=== PATIENT | female | born 1950 | race Caucasian/White ===

== ENCOUNTER → 2024-04-23 16:11 | Outpatient (REF) | payer OTHER, SELFPAY | LOC: WDC 16:11 | PROVIDERS: ATTENDING PHYSICIAN Family Medicine | DX: Z12.31 Encounter for screening mammogram for malignant neoplasm of breast (principal); R92.2 Inconclusive mammogram; Z80.3 Family history of malignant neoplasm of breast | CPT/HCPCS: 77063; 77067 ==

== ENCOUNTER 2024-05-23 06:21 | Day surgery (SDC) | payer OTHER, SELFPAY ==
[2024-05-23 07:21] VITALS: BP 139/88
[2024-05-23 07:40] VITALS: BMI 21.8
[2024-05-23 09:20] VITALS: BP 124/64
[2024-05-23 09:30] VITALS: BP 131/63
[2024-05-23 09:45] VITALS: BP 131/61
== END 2024-05-23 10:10 | disposition home or self-care (01) ==
LOC: SDS 06:21
PROVIDERS: ATTENDING PHYSICIAN Internal Medicine Gastroenterology
DX: Z12.11 Encounter for screening for malignant neoplasm of colon (principal); D12.0 Benign neoplasm of cecum; D12.4 Benign neoplasm of descending colon; K63.5 Polyp of colon; Q43.8 Other specified congenital malformations of intestine; K64.0 First degree hemorrhoids; Z86.0109 Personal history of other colon polyps; K57.30 Diverticulosis of large intestine without perforation or abscess without bleeding
CPT/HCPCS: 45385; 88305

== ENCOUNTER 2024-11-05 19:19 | Day surgery (SDC) | payer OTHER, SELFPAY ==
[2024-11-05] VITALS (8 sets, daily range): BP systolic 119–168; BP diastolic 65–147; BMI 22.6
[2024-11-05 12:03] LABS: % Basophils 0.5 % (0-2); % Eosinophils 0.4 % (0-6); % Immature Granulocytes 0.4 % (0-0.5); % Monocytes 4.1 % (1.7-9.3); % Neutrophils 81.6 % (42.2-75.2); Absolute Basophils 0.1 10^3/uL (0-0.2); Absolute Lymphocytes 1.5 10^3/uL (1.2-3.4); Absolute Monocytes 0.5 10^3/uL (0.1-0.6); Absolute Neutrophils 9.3 10^3/uL (1.4-6.5); Hematocrit 41.7 % (37.0-47.0); Hemoglobin 14.4 g/dL (12.0-16.0); Mean Corp Hgb Conc. 34.5 g/dL (33.0-37.0); Mean Corpuscular Hgb 33.1 pg (27.0-31.0); Mean Corpuscular Volume 95.9 fL (81.0-99.0); Mean Platelet Volume 10.1 fL (7.4-10.4); Nucleated Red Blood Cells % 0 %; Platelet Count 243 10^3/uL (130-400); Red Blood Cell Count 4.35 10^6/uL (4.20-5.40); Red Cell Dist. Width 12.4 % (11.5-14.5); White Blood Cell Count 11.3 10^3/uL (4.8-10.8)
[2024-11-05 12:35] LABS: ALT (SGPT) 17 U/L (0-35); AST (SGOT) 21 U/L (14-36); Alkaline Phosphatase 72 U/L (38-126); Blood Urea Nitrogen 19 mg/dl (7-17); Calcium 10.1 mg/dl (8.4-10.2); Carbon Dioxide 24 mmol/L (22-30); Chloride 104 mmol/L (98-107); Glucose 151 mg/dl (70-99); Potassium 4.2 mmol/L (3.5-5.1); Sodium 141 mmol/L (135-145); Total Bilirubin 1.3 mg/dl (0.2-1.3); Total Protein 7.6 g/dl (6.3-8.2); eGFR 53.39
--- NOTE | 2024-11-05 13:06 | ED.GENMED ---
History of Present Illness
General
Chief Complaint: Chest Pain
Time Seen by Provider: 11/05/24 13:05
History of Present Illness
History of Present Illness:
TIME OF INITIAL ENCOUNTER: 1:10 PM
HPI: The patient presents with relatively abrupt onset abdominal and left-sided flank discomfort. She has a history of kidney stones and this feels similar to prior kidney stones. She also has a history of diverticulitis but this does not feel
like diverticulitis. She has been vomiting. Intermittently throughout the day she also chest discomfort which she describes as minimal currently.
EXAM:
GENERAL: The patient appears uncomfortable
HEENT: Moist oral mucosa
CARDIOVASCULAR: No murmurs, normal heart rate, regular rhythm, No chest wall tenderness
PULMONARY: No respiratory distress, breath sounds are clear and equal
ABDOMEN: Soft with no peritoneal signs, minimal left-sided abdominal tenderness, no CVA tenderness
NEUROLOGIC: Excellent strength all extremities, no coordination deficits
PSYCHIATRIC: Appropriate mental status, normal insight and judgement
EXTREMITIES: Nontender, no edema, moves all extremities equally
SKIN: No rash, no lesions
NUMBER AND COMPLEXITY OF PROBLEMS ADDRESSED AT THE ENCOUNTER
� Chronic conditions affecting care: Migraines, high blood pressure, diverticular disease, anxiety
� Acute Exacerbation and/or Progression of Chronic Illness: This is an acute problem
� Differential Diagnosis includes: Ureteral stone, diverticulitis, viral syndrome, UTI/pyelonephritis
AMOUNT AND/OR COMPLEXITY OF DATA TO BE REVIEWED AND ANALYZED
� I performed an independent evaluation of and my interpretation is:
EKG: Sinus 62, normal axis, no acute ST abnormality no change from 2019
CT: CT shows a 4 mm stone in the distal left ureter just proximal to the left UVJ
X-rays:
Laboratory Studies: White count 11.3, hemoglobin 14.4, creatinine 1.1, greater than 100 red cells per high-powered field but no evidence of infection
Other:
� Review of other/old records: I reviewed records, the patient had a colonoscopy in 2023 and was seen here in 2019 with diverticulitis. The patient also had a ureteral stone in 2019.
� Clinical information was obtained by an independent historian: I spoke to the at bedside
� Prescriptions/Medications Considered but not given:
� Further testing considered but not performed:
RISK OF COMPLICATIONS AND/OR MORBIDITY OR MORTALITY OF PATIENT MANAGEMENT
� Social determinants of health affecting care: Lives at home
� Discussion with other providers: Discussed with Dr. Miguel
� Escalation of care including admission/observation vs risk of discharge considered: The patient states that her pain feels like the time she had a kidney stone. She appears uncomfortable. Although she has mild renal
insufficiency, will give a dose of Toradol. She is also given fluids and Zofran. Will obtain noncontrast CT. She describes some intermittent mild chest discomfort but EKG is unremarkable.
ANY OTHER UPDATES:
4 PM: On reassessment, the patient's pain persists but somewhat improved. Will give low-dose Dilaudid.
4:45 PM: The patient was given Dilaudid earlier reports no significant improvement. She remains to appear uncomfortable and she does not feel comfortable going home. I notified Dr. Miguel who accepts to his service for further management.
Past History
Past History
ED Past Medical History: HTN and Other
ED Past Surgical History: Cholecystectomy, Gynecological and Urological
Social History
Tobacco: Former smoker
Alcohol: Occasional
Personal:
Living: with family
Employment: Employed
Family History
Family History: Negative Early CAD
Phy Exam
Physical Exam
Physical Exam:
See HPI
Scores
Heart Score for Chest Pain Patients
STEMI patient?: Not applicable
Course
Orders/Labs/Results
Orders:
Orders
11/05/24 11:27
ECG [Electrocardiogram (*1)] Urgent
Reason for Study: Chest Pain
EKG- Treatment ONCE
11/05/24 11:44
Complete Blood Count/With Diff Urgent
Comprehensive Metabolic Panel Urgent
Troponin I Urgent
11/05/24 13:12
CT Abd/pel Without Iv Or Oral Urgent
Comment:
Reason For Exam: L flank/abd pain similar to prior stone
0.9% Sodium Chloride 1000 ml [Nss] 1,000 ml IV BOLUS
Ketorolac [Toradol] 15 mg IV NOW STA
11/05/24 13:13
Ondansetron Injectable [Zofran] 4 mg IV NOW STA
11/05/24 13:37
Urinalysis Reflex To Culture Urgent
Date Specimen was Collected: 11/05/24
Time Specimen was Collected: 13:25
Urine Microscopic Reflex Cult Urgent
Urine Culture Urgent
KATHY Source: U
Specimen Description:
Date Specimen was Collected: 11/05/24
Time Specimen was Collected: 13:25
11/05/24 15:52
HYDROmorphone [Dilaudid] 0.5 mg IV NOW STA
Abnormal Lab Results
11/05/24 11/05/24
11:44 13:37
WBC 11.3 H 10^3/uL
(4.8-10.8)
MCH 33.1 H pg
(27.0-31.0)
Absolute Neuts (auto) 9.3 H 10^3/uL
(1.4-6.5)
Neutrophils % 81.6 H %
(42.2-75.2)
Lymphocytes % 13.0 L %
(20.5-51.1)
BUN 19 H mg/dl
(7-17)
Creatinine 1.1 H mg/dL
(0.6-1.0)
Glucose 151 H mg/dl
(70-99)
Ur Occult Blood Reflex 4+ A
(Negative)
Leukocyte Esterase Rfl 1+ A
(Negative)
Urine RBC >100 A /HPF
(0-2)
Urine Albumin (Reflex) 2+ A
(Neg - Trace)
11/05/24 11:44
11/05/24 11:44
Vital Signs
Initial and Last Documented VS:
Initial Vital Signs
Temp Pulse Resp BP Pulse Ox
36.5 C 57 16 139/79 95
11/05/24 11:33 11/05/24 11:33 11/05/24 11:33 11/05/24 11:33 11/05/24 11:33
Last Documented Vital Signs
Temp Pulse Resp BP Pulse Ox
36.5 C 59 16 131/71 99
11/05/24 11:33 11/05/24 14:06 11/05/24 11:33 11/05/24 14:06 11/05/24 13:07
*Critical Care Note
Total Time (30-74mins, 75-104mins- exclusive of procedures): Not Applicable
ED Attending Note
-
Portions of this chart may have been created with voice recognition software.� Occasional wrong word or��sound alike� substitutions may have occurred due to the inherent limitations of voice recognition software.
Discharge Plan
Departure
Patient Disposition: Admit
Date of Disposition: 11/05/24
Time of Disposition: 16:56
Presentation/result/management discussed w/ accepting MD/DO: dr miguel
Discharge Problem:
Left ureteral stone
Prescriptions:
No Action
PreserVision Lutein 1 EACH capsule
1 cap PO BID
calcium carbonate-vit D3-min [Caltrate 600-D Plus Minerals] 1 TAB tablet
3 tab PO DAILY
cyanocobalamin (vitamin B-12) 1,000 MCG tablet
1,000 mcg PO DAILY
aspirin 81 MG tablet,delayed release (/EC)
81 mg PO DAILY
ascorbic acid (vitamin C) [Vitamin C] 500 MG tablet
500 mg PO DAILY
PreserVision AREDS 1 CAP capsule
1 cap PO BID
Multivitamin Women 50 Plus 1 EACH tablet
1 ea PO DAILY
sertraline 25 MG tablet
25 mg PO PRN PRN (Reason: anxiety)
zolpidem 5 MG tablet
5 mg PO HSPRN PRN (Reason: insomnia)
metoprolol succinate [Toprol XL] 25 mg Tablet Extended Release 24 Hr
25 mg PO DAILY
Referrals:
Serafin Dickerson DO [Family Provider] -
Interventions
Interventions:
*Risk Screen - Suicide Last Done: 11/05/24 11:33
*Neglect/Abuse Screening Last Done: 11/05/24 11:33
Discharge Date and Time
Print Language: BELARUSIAN
[2024-11-05] MEDS: TORADOL 15 MG IV ×2 (13:26→22:41)
[2024-11-05] MEDS: NSS 1000 IV ×2 (13:27→22:41)
[2024-11-05] MEDS: ZOFRAN 4 MG IV (13:28)
[2024-11-05 13:30] LABS: Troponin I < 0.012 ng/ml
[2024-11-05 14:02] LABS: Urine Albumin 2+ (Neg - Trace); Urine Bilirubin Negative (Negative); Urine Character Slightly Cloudy (Clear); Urine Color Yellow; Urine Glucose Negative (Negative); Urine Ketone Negative (Negative); Urine Leukocyte 1+ (Negative); Urine Nitrite Negative (Negative); Urine Occult Blood 4+ (Negative); Urine Specific Gravity 1.015 (<1.030); Urine Urobilinogen Negative (Neg - 1+); Urine pH 6.5 (5.0-9.0)
[2024-11-05 14:39] LABS: Urine Amorphous Seen
[2024-11-05 14:40] LABS: Urine Red Blood Cell >100 /HPF (0-2)
[2024-11-05] MEDS: DILAUDID 0.5 MG IV (16:02)
--- NOTE | 2024-11-05 17:34 | HP.FOC2 ---
Focused History & Physical
Chief Complaint
HPI:
Chief Complaint: flank pain
HPI / Indication for Planned Procedure:
74F known to our practice with history of kidney stones
8mm R proximal stone removed in 2019 with ureteroscopy
Was followed and did not have any recurrence of stones on CT and [facility] as of 2022
Incontinence issues s/p sling with Dr. Bocanegra
Presents with sudden severe L flank pain with nausea and vomiting for 1 day
No infectious signs or symptoms - no fevers/chills
CT in ED showed 4mm L distal stone
Afebrile
Pain unable to be controlled for outpatient trial of passage
Relevant Past Medical History: Hypertension and Other (kidney stones)
Relevant Social History: Negative
Relevant Family History: Negative
Relevant Past Surgical History: Positive for (ureteroscopy)
Review of Systems
Review of Pertinent Systems: All Systems Negative
Medication
See Medication form for detailed medications: Yes
Medication List (including Herbals & OTC):
ascorbic acid (vitamin C) 500 mg tablet (Vitamin C) 500 mg PO DAILY 05/10/20
aspirin 81 mg tablet,delayed release 81 mg PO DAILY 05/10/20
cyanocobalamin (vitamin B-12) 1,000 mcg tablet 1,000 mcg PO DAILY 05/10/20
sertraline 25 mg tablet 25 mg PO DAILYPRN PRN anxiety 05/10/20
vitamins A,C,V-ludf-avlszz 4,296 mcg-226 mg-90 mg capsule (PreserVision AREDS) 1 cap PO BID 05/10/20
metoprolol succinate 25 mg tablet,extended release 24 hr (Toprol XL) 25 mg PO QPM 05/23/24
yneffzx-aritycghrfszm-tlsafqye 250 mg-250 mg-65 mg tablet (Excedrin Migraine) 1 tab PO DAILYPRN PRN migraine 11/05/24
calcium carbonate (Calcium 600) 600 mg PO BID 11/05/24
vtfexyze-dao-qwakx1 250 mg-dha 90 mg-epa 160 bu-gfqt-ipqn-zeax capsule (Ocuvite Adult 50 Plus) 1 cap PO DAILY 11/05/24
simvastatin 40 mg tablet 40 mg PO QPM 11/05/24
therapeutic multivitamin 1 tab PO DAILY 11/05/24
zolpidem 10 mg tablet 10 mg PO HSPRN PRN sleep 11/05/24
Medications Reviewed: Yes
Allergies and Reactions
Patient has Allergies: Yes
Noted Allergies and Reactions:
Allergy/AdvReac Type Severity Reaction Status Date / Time
cat dander Allergy Unknown Verified 11/05/24 11:33
orange Allergy Unknown Verified 11/05/24 11:33
Penicillins Allergy polio Verified 11/05/24 11:33
symptoms
ragweed pollen Allergy Unknown Verified 11/05/24 11:33
strawberry [[place]] Allergy Unknown Verified 11/05/24 11:33
Pertinent Physical Exam
All Other Systems: Negative
Head/Neck: Normal
Lungs: Normal
Heart: Normal
Abdomen: Normal
Other: L CVAT
Diagnosis / Assessment
74F with intractable pain and nausea from 4mm L distal ureteral stone
Plan / Procedure
Admit
NPO at [facility]
OR tomorrow for L ureteroscopy, laser lithotripsy, ureteral stent
Levaquin ppx
IV pain control
Strain urine
IV hydration
Anesthesia/Sedation to be done by Anesthesia Provider: Yes
[2024-11-05] MEDS: FLOMAX 0.4 MG PO (18:19)
[2024-11-05] MEDS: TOPROL XL 25 MG PO (22:41)
[2024-11-05] MEDS: LIPITOR 20 MG PO (22:41)
[2024-11-06] MEDS: TORADOL 15 MG IV ×3 (04:02→15:43)
--- NOTE | 2024-11-06 05:18 | PTCARENOTE ---
Received patient from the ED overnight. Pain managed by standing toradol order. Urine to be strained. Going to the OR for L ureteroscopy, laser lithotripsy, ureteral stent today.
[2024-11-06] MEDS: NSS 1000 IV (05:35)
[2024-11-06] MEDS: PERCOCET 5/325 1 TABLET PO (05:38)
[2024-11-06 07:05] LABS: Hematocrit 35.6 % (37.0-47.0); Hemoglobin 12.3 g/dL (12.0-16.0); Mean Corp Hgb Conc. 34.6 g/dL (33.0-37.0); Mean Corpuscular Hgb 33.2 pg (27.0-31.0); Mean Corpuscular Volume 96.2 fL (81.0-99.0); Mean Platelet Volume 10.5 fL (7.4-10.4); Platelet Count 185 10^3/uL (130-400); Red Cell Dist. Width 12.6 % (11.5-14.5); White Blood Cell Count 9.2 10^3/uL (4.8-10.8)
[2024-11-06 07:23] LABS: Blood Urea Nitrogen 22 mg/dl (7-17); Calcium 8.9 mg/dl (8.4-10.2); Carbon Dioxide 24 mmol/L (22-30); Chloride 107 mmol/L (98-107); Estimated Creatinine Clearance 37 ml/min; Glucose 118 mg/dl (70-99); Sodium 139 mmol/L (135-145); eGFR 43.69
[2024-11-06 08:06] VITALS: BP 128/74
[2024-11-06] MEDS: ASPIR LOW (ENTERIC COATED) 81 MG PO (08:47)
--- NOTE | 2024-11-06 09:55 | CM ---
Reviewed the chart notes and spoke with the patient at the bedside. The patient resides with her spouse in a two story home with no steps to enter. The patient reports no DME/VN/SNF in the past. The patient confirmed her pharmacy of choice is the
[facility]. CM continues to be available to patient/family and is monitoring medical plan for needs at discharge.
Plan: Discharge plans will depend on the patient's progress.
[2024-11-06 13:25] VITALS: BP 122/66; BP 128/74
[2024-11-06 13:30] VITALS: BP 133/71
--- NOTE | 2024-11-06 13:33 | W.IMMPOSTOP ---
Surgical Immed Post Op Note
-
Primary Surgeon: Peffer
Assisting Surgeon: -
Pre-op Diagnosis: L ureteral stone
Post-op Diagnosis: same
Procedure Performed: cystoscopy, L ULS - stent on string
Anesthesia Type: general
Specimen / Cultures: none
Estimated Blood Loss: none
Complications: none
Operative Findings: Distal stone fragmented and removed
[2024-11-06 13:45] VITALS: BP 130/69
[2024-11-06 14:00] VITALS: BP 131/68
[2024-11-06 14:19] VITALS: BP 123/68
[2024-11-06] MEDS: PREVNAR 20 0.5 ML IM (15:39)
[2024-11-06 18:45] LABS: Hepatitis C Antibody Negative (Negative)
== END 2024-11-06 16:20 | disposition home or self-care (01) ==
LOC: SDS 19:19
PROVIDERS: Emergency Medicine; ATTENDING PHYSICIAN Urology; EMERGENCY PHYSICIAN Emergency Medicine; FAMILY PHYSICIAN Family Medicine
DX: N20.1 Calculus of ureter (principal); Z87.442 Personal history of urinary calculi
CPT/HCPCS: 52356; 74018; 74176; 76000; 80048; 80053; 81003; 81015; 84484; 85025; 85027; 86803; 87086; 90677; 93005; 96374; 96375; 99285; A4300; C1769; C1894; C2617; G0009

== ENCOUNTER → 2025-02-09 13:55 | Outpatient (REF) | payer OTHER, SELFPAY | LOC: WDC 13:55 | PROVIDERS: ATTENDING PHYSICIAN Family Medicine | DX: R92.2 Inconclusive mammogram (principal) | CPT/HCPCS: 76641 ==

== ENCOUNTER → 2025-05-12 13:46 | Outpatient (REF) | payer OTHER, SELFPAY | LOC: WDC 13:46 | PROVIDERS: ATTENDING PHYSICIAN Family Medicine | DX: Z12.31 Encounter for screening mammogram for malignant neoplasm of breast (principal) | CPT/HCPCS: 77063; 77067 ==

== ENCOUNTER → 2025-07-28 13:56 | Outpatient (REF) | payer OTHER, SELFPAY | LOC: WDC 13:56 | PROVIDERS: ATTENDING PHYSICIAN Family Medicine | DX: R92.8 Other abnormal and inconclusive findings on diagnostic imaging of breast (principal) | CPT/HCPCS: 76642 ==

== ENCOUNTER → 2025-08-12 12:04 | Outpatient (REF) | payer OTHER, SELFPAY | LOC: RAD 12:04 | PROVIDERS: ATTENDING PHYSICIAN Family Medicine | DX: M85.80 Other specified disorders of bone density and structure, unspecified site (principal) | CPT/HCPCS: 77080 ==